=== PATIENT | female | born 1965 | race Caucasian/White ===

== ENCOUNTER 2020-05-11 12:17 | Emergency (ER) | payer BC ==
[2020-05-11 12:44] VITALS: TEMP 96.8
--- NOTE | 2020-05-11 14:58 | US ---
EXAM DESCRIPTION: Venous,Lower Extremity RT: ULTRASOUND. CLINICAL HISTORY: calf pain, hx DVT 5yrs ago COMPARISON: None Available. TECHNIQUE: Beltre-scale and doppler sonographic evaluation of the deep venous system of the right lower extremity. FINDINGS: Doppler evaluation shows normal color flow and normal phasicity and augmentation of the right common femoral vein, femoral vein, popliteal vein, greater saphenous vein, junction with the CFV. Also normal color flow and normal phasicity and augmentation of the peroneal, and posterior tibial vein. The right lower extremity deep veins were completely compressible; normal occlusion with transducer pressure. Beltre-scale survey showed no echogenic thrombus within these veins. IMPRESSION: 1. Duplex ultrasound evaluation of the right lower extremity deep venous system showing no evidence of thrombosis. Electronically signed by: Evin Hooper MD 05/11/2020 2:56 PM CDT
--- NOTE | 2020-05-11 15:03 | ED.PDOC ---
History of Present Illness - General Chief Complaint: General Stated Complaint: pain behind right knee, hx blood clots Time Seen by Provider: 05/11/20 12:19 Source: patient Exam Limitations: no limitations - History of Present Illness Initial Comments: The patient is a 55-year-old female presented emergency room secondary to some pain in the right medial calf present for the last couple of days. No shortness of breath. No palpable cords. No erythema. She has had a little bit of mild swelling to the right lower extremity the last couple of days. No recent trauma. She is ambulatory. The patient is mainly concerned because she had a pulmonary embolus about 5 years ago while she was taking hormone therapy for breast cancer. She has not been on any significant blood thinner since that time. She is not on a blood thinner currently. The patient is pleasant and cooperative and in no acute distress. She was advised to come here by her primary care doctor. Timing/Duration: unsure Severity: mild Improving Factors: nothing Worsening Factors: movement Associated Symptoms: denies symptoms Allergies/Adverse Reactions: Allergies NO KNOWN ALLERGY Allergy (Verified 05/11/20 12:50) Review of Systems - Review of Systems Constitutional: States: no symptoms reported EENTM: States: no symptoms reported Respiratory: States: no symptoms reported Cardiology: States: no symptoms reported Gastrointestinal/Abdominal: States: no symptoms reported Genitourinary: States: no symptoms reported Musculoskeletal: States: see HPI Skin: States: no symptoms reported Neurological: States: no symptoms reported Endocrine: States: no symptoms reported All other Systems: No Change from Baseline Past Medical History (General) - Patient Medical History Hx Stroke: No Hx Asthma: No Hx Cardiac Disorders: No Hx Congestive Heart Failure: No Hx Diabetes: No Hx Renal Disease: No Hx Cancer: Yes - breast/skin Surgical History: Hysterectomy - Vaccination History Hx Influenza Vaccination: No - Activities of Daily Living Hospice Agency (if applicable):: None - Female History Patient : No - Triage Comment ED Triage Comment: pt voices pain behind right knee. voices history of blood clots and bilateral PE's years ago when she had breast cancer. Family Medical History - Family History Mother Family History: Unknown Physical Exam - Physical Exam General Appearance: Alert, Anxious, No apparent distress Eye Exam: bilateral normal Ears, Nose, Throat: hearing grossly normal Neck: full range of motion Respiratory: lungs clear, normal breath sounds, no respiratory distress, no accessory muscle use Cardiovascular/Chest: regular rate, rhythm Peripheral Pulses: radial,right: 2+, radial,left: 2+, dorsalis pedis,right: 2+, dorsalis pedis,left: 2+ Rectal Exam: deferred Extremity: normal range of motion, calf tenderness - Very mild discomfort to palpation to the right medial calf. 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 Right lower extremity venous Doppler is negative for any thrombosis. This is most likely a mild muscular strain. I would encourage stretching. Topical heat may prove beneficial. Obviously if the patient is significantly worsening in any way, then a repeat or additional evaluation could be done at that time. ER warnings are given. Keep routine follow-up with primary care doctor. sue ferrell [id number] Departure - Departure Clinical Impression: Lower extremity pain Qualifiers: Laterality: right Qualified Code(s): M79.604 - Pain in right leg Disposition: Discharge to Home or Self Care Condition: Fair Departure Forms: ED Discharge - Pt. Copy, Patient Portal Self Enrollment Instructions: Muscle Strain (DC) Diet: regular diet Activity: increase activity as tolerated Additional Instructions: The patient is a 55-year-old female presented emergency room secondary to concern for possible right lower extremity recurrent DVT given pain and mild swelling that the patient is experienced over the past couple of days, as well as her history of having had a DVT in the past. Right lower extremity venous Doppler is negative for any thrombosis. This is most likely a mild muscular strain. I would encourage stretching. Topical heat may prove beneficial. Obviously if the patient is significantly worsening in any way, then a repeat or additional evaluation could be done at that time. ER warnings are given. Keep routine follow-up with primary care doctor.
[2020-05-11 15:35] VITALS: BP 130/63; O2SAT 92
== END 2020-05-11 15:20 | disposition home or self-care (01) ==
LOC: ER 12:17
DX: M79.604 Pain in right leg (principal); Z86.711 Personal history of pulmonary embolism